=== PATIENT | female | born 1980 | race Caucasian/White ===

== ENCOUNTER 2017-04-16 06:21 | Emergency (ER) | payer MEDICAID ==
[~2017-04-16] VITALS: Ht 152.4 cm; Wt 58.0 kg
[~2017-04-16 06:21] MED LIST: ACET500C5 PO; IBUP-1542 PO; POLY17PO6 PO
[2017-04-16 06:22] VITALS: Ht 152.4 cm; Wt 58.0 kg
[2017-04-16] MEDS ORDERED: ONDANSETRON (ODT) 4 MG TAB ODT STA (07:00)
[2017-04-16] MEDS ORDERED: FAMOTIDINE 20 MG TAB PO STA (07:00)
[2017-04-16 07:32] LABS: ADD SCAN DIFF NO
[2017-04-16 07:34] LABS: BASOPHILS % 0.4 % (0.0-2.0); EOSINOPHILS # 0.1 10^3/ul (0.0-0.5); EOSINOPHILS % 1.9 % (0.0-7.0); HEMATOCRIT 40.1 % (37.0-47.0); HEMOGLOBIN 13.3 g/dl (12.0-16.0); LYMPHOCYTES # 1.8 10^3/ul (0.8-2.9); LYMPHOCYTES % 26.2 % (15.0-51.0); MEAN CORPUSCULAR HEMOGLOBIN 30.3 pg (29.0-33.0); MEAN CORPUSCULAR HGB CONC 33.2 g/dl (32.0-37.0); MEAN CORPUSCULAR VOLUME 91.3 fl (82.0-101.0); MEAN PLATELET VOLUME 9.4 fl (7.4-10.4); MONOCYTE # 0.5 10^3/ul (0.3-0.9); MONOCYTES % 6.7 % (0.0-11.0); NEUTROPHIL # 4.4 10^3/ul (1.6-7.5); NEUTROPHILS % 64.5 % (39.0-77.0); PLATELET COUNT 326 10^3/UL (140-415); RED BLOOD COUNT 4.39 10^6/ul (4.20-5.40); RED CELL DISTRIBUTION WIDTH 13.2 % (11.5-14.5); WHITE BLOOD COUNT 6.8 10^3/ul (4.8-10.8)
[2017-04-16 07:50] LABS: ADD UMIC NO; UR ASCORBIC ACID NEGATIVE (NEGATIVE); UR BILIRUBIN (Dip) NEGATIVE (NEGATIVE); UR BLOOD (Dip) NEGATIVE (NEGATIVE); UR CLARITY SLIGHTLY CLOUDY (CLEAR); UR COLOR STRAW (YELLOW); UR GLUCOSE (Dip) NEGATIVE (NEGATIVE); UR KETONES (Dip) NEGATIVE (NEGATIVE); UR LEUKOCYTE ESTERASE (Dip) NEGATIVE Leu/ul (NEGATIVE); UR NITRITE (Dip) NEGATIVE (NEGATIVE); UR RBC 0 /HPF (0-5); UR SQUAMOUS EPITHELIAL CELL FEW /HPF (FEW); UR TOTAL PROTEIN (Dip) NEGATIVE (NEGATIVE); UR UROBILINOGEN (Dip) NEGATIVE (NEGATIVE)
--- NOTE | 2017-04-16 07:52 | RADRPT ---
PROCEDURE: US Abdomen Limited . CLINICAL INDICATION: Abdominal pain TECHNIQUE: Multiple real-time images were acquired of the patient's right upper quadrant abdomen u tilizing a high resolution transducer. COMPARISON: None FINDINGS: The liver measures 14.7 cm and demonstrates a coarsened echogenicity. The gallbladder is filled with a moderate amount of bile. No shadowing echogenic stones or masses are seen in the gallbladder. T he gallbladder wall is not thickened at 1.6 mm. No pericholecystic fluid is noted. The common bile d uct measures 3.4 mm in diameter. The visualized portions of the proximal pancreas are unremarkable. The tail of the pancreas is not well visualized. Antegrade flow is seen in the portal vein. Right kidney measures 9.9 cm. Right kidney demonstrates a normal echogenicity. No hydronephrosis, masses or stones are noted. IMPRESSION: Diffuse fatty infiltration of the liver. Tail of the pancreas not well visualized. If characterization of this structure is needed repeat exa m or CT/MRI is recommended. RPTAT: AA .Cesar Panchal MD, MD Date Time Electronically viewed and signed by .Cesar Panchal MD, on 04/16/2017 07:52 .P/
--- NOTE | 2017-04-16 07:55 | RADRPT ---
PROCEDURE: XR Chest 1 View. CLINICAL INDICATION: Cough TECHNIQUE: AP view of the chest was obtained. COMPARISON: None. FINDINGS: The cardiomediastinal silhouette is within normal limits. No consolidations are identified. No pneu mothorax is seen. Osseous structures are intact. IMPRESSION: No visualized active disease. RPTAT: AA .Cesar Panchal MD, MD Date Time Electronically viewed and signed by .Cesar Panchal MD, on 04/16/2017 07:54 .P/
[2017-04-16 09:22] LABS: ALBUMIN 4.3 g/dl (3.3-4.9); ALBUMIN/GLOBULIN RATIO 1.3; BILIRUBIN,INDIRECT 0.6 mg/dl (0-1.1); BILIRUBIN,TOTAL 0.6 mg/dl (0.2-1.3); CALCIUM 9.1 mg/dl (8.4-10.2); CREATININE 0.61 mg/dl (0.44-1.00); POTASSIUM 4.1 mmol/L (3.5-5.1); TOTAL PROTEIN 7.6 g/dl (6.1-8.1)
[2017-04-16] MEDS ORDERED: FAMO-96 PO (09:50)
[2017-04-16] MEDS ORDERED: ONDA4TAB14 PO (09:50)
[2017-04-16 10:02] VITALS: BP 122/72; PULSE 70; RESP 18; TEMP 98.1
--- NOTE | 2017-04-16 10:59 | ERD ---
ER Documentation Chief Complaint Date/Time DATE: 04/16/17 TIME: 10:53 Chief Complaint abd pain x 2 days; with diarrhea and nausea; denies vomiting HPI 36-year-old female patient with no significant past medical history presents to the ED complaining of upper abdominal pain started 2 days ago. Reports that she has diarrhea that started last night. States that she had about 5 nonmucoid nonbloody episodes. Patient reports that her abdomen feels inflamed and hot. Reports that the pain is constant and rates it a 7 out of 10. States that she has had 3 C-sections. States that it is worse after eating. Reports that she also has a dry cough. Denies any fever, chills, wheezing, shortness of breath, chest pain. Denies any dysuria, urgency, frequency, hematuria, flank pain. ROS All systems reviewed and are negative except as per history of present illness. Medications Home Meds Active Scripts Ondansetron (Ondansetron Odt) 4 Mg Tab.rapdis, 4 MG PO Q6H Y for NAUSEA AND/OR VOMITING, #10 TAB Prov:EDWARDO MOYA PA-C 04/16/17 Famotidine* (Pepcid*) 20 Mg Tablet, 20 MG PO BID, #20 TAB Prov:EDWARDO MOYA PA-C 04/16/17 Polyethylene Glycol* (Miralax*) 17 Gm Powd.pack, 17 GM PO DAILY, #15 Prov:BRITTANY DALTON PA-C 06/22/16 Acetaminophen* (Tylophen*) 500 Mg Capsule, 1 CAP PO Q6H Y for PAIN AND OR ELEVATED TEMP, #30 CAP Prov:BRITTANY DALTON PA-C 06/22/16 Ibuprofen* (Motrin*) 600 Mg Tab, 600 MG PO Q6, #30 TAB Prov:BRITTANY DALTON PA-C 06/22/16 Allergies Allergies: Coded Allergies: amoxicillin (Verified Allergy, Intermediate, 04/16/17) PMhx/Soc History of Surgery: Yes ( X3) Anesthesia Reaction: No Hx Neurological Disorder: No Hx Respiratory Disorders: No Hx Cardiac Disorders: No Hx Psychiatric Problems: No Hx Miscellaneous Medical Probl: No Hx Alcohol Use: No Hx Substance Use: No Hx Tobacco Use: No Smoking Status: Never smoker Physical Exam Vitals Vital Signs Date Time Temp Pulse Resp B/P Pulse Ox O2 Delivery O2 Flow Rate FiO2 04/16/17 10:02 98.1 70 18 122/72 97 Room Air 04/16/17 06:22 98.1 80 20 123/73 97 Physical Exam Const: [id number], well-nourished. In no acute distress. Head: Atraumatic, normocephalic Eyes: Normal Conjunctiva without injection. No purulent discharge. ENT: Normal external ear, nose. Moist oropharynx without tonsillar exudates. Non -erythematous pharynx. Uvula midline. No drooling. No trismus. Neck: No cervical midline tenderness. Full range of motion. No meningismus. No cervical lymphadenopathy. No JVD. Resp: Clear to auscultation bilaterally. No wheezing, rhonchi, rales, or crackles. No accessory muscle use. No retractions. Cardio: Regular rate and rhythm. No murmurs, rubs or gallops. Abd: Soft, tenderness palpation of the right and left upper quadrant, non distended. Normal bowel sounds. No palpable masses. No rebound tenderness. No guarding. Negative McBurney's point. Negative psoas sign. Negative obturator sign. Skin: No petechiae or rashes Back: No midline tenderness. No CVA tenderness. Ext: No cyanosis, or edema. Neur: Awake and alert. Normal gait. Normal coordination. Psych: Normal Mood and Affect Results 24 hrs Laboratory Tests Test 04/16/17 07:16 White Blood Count 6.810^3/ul Red Blood Count 4.3910^6/ul Hemoglobin 13.3g/dl Hematocrit 40.1% Mean Corpuscular Volume 91.3fl Mean Corpuscular Hemoglobin 30.3pg Mean Corpuscular Hemoglobin Concent 33.2g/dl Red Cell Distribution Width 13.2% Platelet Count 83641^3/UL Mean Platelet Volume 9.4fl Neutrophils % 64.5% Lymphocytes % 26.2% Monocytes % 6.7% Eosinophils % 1.9% Basophils % 0.4% Nucleated Red Blood Cells % 0.0/100WBC Neutrophils # 4.410^3/ul Lymphocytes # 1.810^3/ul Monocytes # 0.510^3/ul Eosinophils # 0.110^3/ul Basophils # 0.010^3/ul Nucleated Red Blood Cells # 0.010^3/ul Urine Color STRAW Urine Clarity SLIGHTLY CLOUDY Urine pH 8.0 Urine Specific [place] 1.010 Urine Ketones NEGATIVEmg/dL Urine Nitrite NEGATIVEmg/dL Urine Bilirubin NEGATIVEmg/dL Urine Urobilinogen NEGATIVEmg/dL Urine Leukocyte Esterase NEGATIVELeu/ul Urine Microscopic RBC 0/HPF Urine Microscopic WBC 1/HPF Urine Squamous Epithelial Cells FEW/HPF Urine Hemoglobin NEGATIVEmg/dL Urine Glucose NEGATIVEmg/dL Urine Total Protein NEGATIVEmg/dl Sodium Level 145mmol/L Potassium Level 4.1mmol/L Chloride Level 101mmol/L Carbon Dioxide Level 27mmol/L Anion Gap 21 Blood Urea Nitrogen 9mg/dl Creatinine 0.61mg/dl Glucose Level 94mg/dl Calcium Level 9.1mg/dl Total Bilirubin 0.6mg/dl Direct Bilirubin 0.00mg/dl Indirect Bilirubin 0.6mg/dl Aspartate Amino Transf (AST/SGOT) 35IU/L Alanine Aminotransferase (ALT/SGPT) 47IU/L Alkaline Phosphatase 99IU/L Total Protein 7.6g/dl Albumin 4.3g/dl Globulin 3.30g/dl Albumin/Globulin Ratio 1.30 Lipase 153U/L Current Medications Medications (Trade) Dose Ordered Sig/Ting Route PRN Reason Start Time Stop Time Status Last Admin Dose Admin Famotidine (Pepcid) 20 mg ONCE STAT PO 04/16/17 07:00 04/16/17 07:03 DC 04/16/17 07:37 Ondansetron HCl (Zofran Odt) 4 mg ONCE STAT ODT 04/16/17 07:00 04/16/17 07:03 DC 04/16/17 07:37 Procedures/MDM This is a 36-year-old female patient with no significant past medical history presents the ED complaining of upper abdominal pain associated with fever. Patient is nauseous. Therefore Zofran and famotidine was given to her to help with her symptoms. Patient was further worked up with CBC, CMP, lipase, UA, urine , gallbladder ultrasound, CXR. Patient's pain and symptoms have improved after treatment with Zofran and famotidine. CBC: No leukocytosis. No e/o of systemic infection. No e/o anemia. CMP: No e/o severe acidosis, alkalosis, renal failure, diabetic ketoacidosis, liver disease Lipase within normal limits. Urine: No leukocyte esterase, no nitrites, no hematuria. Urine : negative PROCEDURE: XR Chest 1 View. CLINICAL INDICATION: Cough TECHNIQUE: AP view of the chest was obtained. COMPARISON: None. FINDINGS: The cardiomediastinal silhouette is within normal limits. No consolidations are identified. No pneumothorax is seen. Osseous structures are intact. IMPRESSION: No visualized active disease. PROCEDURE: US Abdomen Limited . CLINICAL INDICATION: Abdominal pain TECHNIQUE: Multiple real-time images were acquired of the patient's right upper quadrant abdomen utilizing a high resolution transducer. COMPARISON: None FINDINGS: The liver measures 14.7 cm and demonstrates a coarsened echogenicity. The gallbladder is filled with a moderate amount of bile. No shadowing echogenic stones or masses are seen in the gallbladder. The gallbladder wall is not thickened at 1.6 mm. No pericholecystic fluid is noted. The common bile duct measures 3.4 mm in diameter. The visualized portions of the proximal pancreas are unremarkable. The tail of the pancreas is not well visualized. Antegrade flow is seen in the portal vein. Right kidney measures 9.9 cm. Right kidney demonstrates a normal echogenicity. No hydronephrosis, masses or stones are noted. IMPRESSION: Diffuse fatty infiltration of the liver. Tail of the pancreas not well visualized. If characterization of this structure is needed repeat exam or CT/MRI is recommended. Differentials include gastritis, GERD, peptic ulcer disease. Low suspicion for cholecystitis, choledocholithiasis, cholangitis, pancreatitis, appendicitis, bowel obstruction, ileus, volvulus, nephrolithiasis, pyelonephritis, hepatitis, perforated viscus, diverticulitis, abdominal hernia, acute abdomen, mesenteric ischemia or other emergent conditions. Patient's physical exam include lungs which were clear to auscultation and a normal pulse oximetry. There is a low suspicion for pneumonia, pneumothorax, mononucleosis, pulmonary embolism, epiglottitis, otitis media, otitis externa, viral/strep pharyngitis, sinusitis, peritonsillar abscess, mastoiditis, retropharyngeal abscess, meningitis, sepsis , acute abdomen or other emergent conditions. 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 Instructed patient to return to the ED sooner for any worsening symptoms. Patient's questions were answered. Patient understood and agreed with discharge plan. Patient discharged stable. Departure Diagnosis: Primary Impression: Abdominal pain Abdominal location: unspecified location Qualified Code: R10.9 - Abdominal pain, unspecified location Condition: Stable Patient Instructions: Abdominal Pain, Gastritis Vs. Ulcer Referrals: [facility] YOU HAVE RECEIVED A MEDICAL SCREENING EXAM AND THE RESULTS INDICATE THAT YOU DO NOT HAVE A CONDITION THAT REQUIRES URGENT TREATMENT IN THE EMERGENCY DEPARTMENT. FURTHER EVALUATION AND TREATMENT OF YOUR CONDITION CAN WAIT UNTIL YOU ARE SEEN IN YOUR DOCTORS OFFICE WITHIN THE NEXT 1-2 DAYS. IT IS YOUR RESPONSIBILITY TO MAKE AN APPOINTMENT FOR FOLOW-UP CARE. IF YOU HAVE A PRIMARY DOCTOR --you should call your primary doctor and schedule an appointment IF YOU DO NOT HAVE A PRIMARY DOCTOR YOU CAN CALL OUR PHYSICIAN REFERRAL HOTLINE AT IF YOU CAN NOT AFFORD TO SEE A PHYSICIAN YOU CAN CHOSE FROM THE FOLLOWING [facility] [address] [facility]. [facility] [address] [employer] [facility] [address] [facility] [address] [facility] [address] [facility]. [facility] [address] [facility] [facility] YOU HAVE RECEIVED A MEDICAL SCREENING EXAM AND THE RESULTS INDICATE THAT YOU DO NOT HAVE A CONDITION THAT REQUIRES URGENT TREATMENT IN THE EMERGENCY DEPARTMENT. FURTHER EVALUATION AND TREATMENT OF YOUR CONDITION CAN WAIT UNTIL YOU ARE SEEN IN YOUR DOCTORS OFFICE WITHIN THE NEXT 1-2 DAYS. IT IS YOUR RESPONSIBILITY TO MAKE AN APPOINTMENT FOR FOLOW-UP CARE. IF YOU HAVE A PRIMARY DOCTOR --you should call your primary doctor and schedule and appointment IF YOU DO NOT HAVE A PRIMARY DOCTOR YOU CAN CALL OUR PHYSICIAN REFERRAL HOTLINE AT . IF YOU CAN NOT AFFORD TO SEE A PHYSICIAN YOU CAN CHOSE FROM THE FOLLOWING [facility] INSTITUTIONS: [facility] [address] [place] [address] [facility] [address] [place] [address] [facility] + [address] [address] [facility] URGENT CARE/SPECIALTIES Additional Instructions: Llame al doctor MAANA y nima orin SANTOS PARA DENTRO DE 1-2 SAWYER.Dgale a la secretaria que nosotros le instruimos hacer esta santos para un referido a un gastroenterlogo. Avise o llame si godfrey condicin se empeora antes de la santos. Regresa aqui si peor o no mejor. EDWARDO MOYA PA-C Apr 16, 2017 10:59 Regresa aqui si peor o no mejor. EDWARDO MOYA PA-C Apr 16, 2017 10:59
== END 2017-04-16 09:56 | disposition home or self-care (01) ==
LOC: FTE 06:21
DX: R10.11 Right upper quadrant pain (principal); R10.12 Left upper quadrant pain; R11.0 Nausea
CPT/HCPCS: 71010; 76705; 80053; 81001; 81003; 83690; 85025; Z7610; 36415

== ENCOUNTER 2018-09-03 08:42 | Emergency (ER) | END 2018-09-03 12:19 | disposition home or self-care (01) ==